=== PATIENT | female | born 1975 | race African-American/Black ===

== ENCOUNTER → 2019-10-01 | Outpatient (CLI) | payer OTHER ==
--- NOTE | 2019-10-01 13:02 | RAD ---
EXAM: Right knee, 3 views. HISTORY: Pain. COMPARISON: None. FINDINGS: 3 views of the right knee are obtained. There is mild tricompartment marginal spurring. There is no fracture, dislocation or subluxation. No joint effusion is seen. IMPRESSION: No acute osseous finding. Electronically signed by: Abby Hopkins MD (10/01/2019 12:59 PM) [id number]
== END | disposition home or self-care (01) ==
LOC: DXRAD 11:58
PROVIDERS: ATTEND Family Medicine
DX: M25.561 Pain in right knee (principal); M25.562 Pain in left knee
CPT/HCPCS: 73562